=== PATIENT | female | born 1955 | race Caucasian/White ===

== ENCOUNTER 2019-10-01 15:12 | Emergency (ER) | payer MEDICARE ==
[~2019-10-01] VITALS: Ht 160 cm; Wt 117.9 kg
[2019-10-01] MEDS ORDERED: METFORMIN HCL500 M3 PO (15:28)
[2019-10-01] MEDS ORDERED: ALOGLIPTIN25 MG PO (15:29)
[2019-10-01] MEDS ORDERED: ZESTRIL40 MG PO (15:29)
[2019-10-01] MEDS ORDERED: VITAMIN D21250 MC1 PO (15:30)
[2019-10-01] MEDS ORDERED: ASA81BEC PO (15:31)
[2019-10-01] MEDS ORDERED: LIPITOR40 MG PO (15:31)
[2019-10-01] MEDS ORDERED: METOPROLOL TART25 MG PO (15:32)
[2019-10-01] MEDS ORDERED: NORCO 5-325 TA1 EAC1 PO (16:20)
[2019-10-01 16:35] VITALS: BP 171/96
== END 2019-10-01 16:35 | disposition home or self-care (01) ==
LOC: M.ERS 15:12
DX: S59.202A Unspecified physeal fracture of lower end of radius, left arm, initial encounter for closed fracture (principal); S52.612A Displaced fracture of left ulna styloid process, initial encounter for closed fracture; I10 Essential (primary) hypertension; E11.9 Type 2 diabetes mellitus without complications; E78.00 Pure hypercholesterolemia, unspecified; Z90.710 Acquired absence of both cervix and uterus; Z88.1 Allergy status to other antibiotic agents; W13.8XXA Fall from, out of or through other building or structure, initial encounter; Y93.89 Activity, other specified; Y92.89 Other specified places as the place of occurrence of the external cause; Y99.8 Other external cause status